=== PATIENT | female | born 1960 | race Caucasian/White ===

== ENCOUNTER 2016-09-06 17:31 | Inpatient (IN) ==
--- NOTE | 2016-09-06 18:48 | Emergency Department Note ---
Disposition Clinical Impression: Anemia Qualifiers: Anemia type: unspecified type Qualified Code(s): D64.9 - Anemia, unspecified Disposition: Admitted As Inpatient Condition: Good Recheck wound or abnormal lab - General Chief Complaint: ED Recheck/Abnormal Lab/Rx Stated Complaint: Abnormal Labs low Hemoglobin Time Seen by Provider: 09/06/16 18:07 Source: patient Limitations: no limitations Nursing Notes Reviewed: Yes Vital Signs Reviewed: Yes - History of Present Illness HPI Narrative: 66-year-old was doing preop for carotid endarterectomy was found have a hemoglobin 5.8. Pt Subjective Complaint: abnormal lab(s) Symptoms Since Prior Visit: no new symptoms Context: called for abnormal lab result Associated symptoms: none - Related Data Home Medications Medication Instructions Recorded Confirmed Aspirin Enteric Coated [Aspirin EC] 81 mg PO DAILY 09/06/16 09/06/16 Carvedilol 12.5 mg PO BID 09/06/16 09/06/16 hydroCHLOROthiazide 25 mg PO DAILY 09/06/16 09/06/16 [Hydrochlorothiazide] Allergies Allergy/AdvReac Type Severity Reaction Status Date / Time Penicillins [PCN] Allergy Rash Verified 09/05/16 09:16 lisinopril AdvReac Cough Verified 09/05/16 09:16 meperidine [From Demerol] AdvReac Vomiting Verified 09/05/16 09:16 All systems ED: reviewed and negative except as stated. Constitutional: Denies: fever, chills, weakness, weight change Eyes: Denies: eye pain, eye discharge, vision change ENT ED: Denies: ear pain, throat pain, dental pain, hearing loss, epistaxis, congestion, dysphagia Cardiovascular: Denies: chest pain, palpitations, dyspnea on exertion, edema, syncope Respiratory: Denies: cough, dyspnea, wheezes, hemoptysis, stridor Gastrointestinal: Denies: abdominal pain, nausea, vomiting, diarrhea, constipation, hematemesis, melena, hematochezia Genitourinary: Denies: dysuria, frequency, hematuria, discharge Musculoskeletal: Denies: back pain, neck pain, arthralgia, myalgia Integumentary: Denies: rash, abrasion, lesions Neurological: Reports: weakness (Generalized). Denies: headache, numbness, paresthesias, confusion, abnormal gait, vertigo Psychiatric: Denies: anxiety, depression, suicidal thoughts, homicidal thoughts , auditory hallucinations, visual hallucinations Endocrine: Denies: fatigue Hematological/Lymphatic: Denies: easy bleeding, easy bruising Allergic/Immunologic: Denies: facial swelling, urticaria Past Medical History - Past Medical History Medical history: Reports: hypertension Psychiatric history: Reports: no psych history - Social History Smoking Status: Current every day smoker Smokeless Tobacco Status: No Alcohol use: Reports: occasionally Drug use: Reports: none Physical Exam - General Limitations: no limitations General appearance: alert, anxious - Head Head exam: atraumatic, normocephalic, normal inspection - Eye Eye exam: Present: normal appearance, PERRL, EOMI - ENT ENT exam: normal exam, normal oropharynx, mucous membranes moist - Neck Neck exam: Present: normal inspection, full ROM, trachea midline - Chest Chest inspection: Present: normal inspection, symmetric chest wall rise - Respiratory Respiratory exam: Present: normal lung sounds bilaterally - Abdominal Exam Abdominal exam: Present: soft, Non-Tender. Absent: tenderness, distention, guarding, rebound, rigidity - Rectal Exam Web Site Admin present during exam: Yes Rectal exam: Present: black stool - Extremities Exam Extremities exam: Present: normal inspection, full ROM. Absent: tenderness, pedal edema - Expanded Lower Extremity Exam Neurovascular/Tendon exam: Absent: motor deficit, sensory deficit, tendon deficit Gait: observed and normal - Back Exam Back exam: Present: normal inspection, full ROM. Absent: tenderness - Neurological Exam Neurological exam: Present: alert, oriented X3 - Psychiatric Psychiatric exam: Present: normal affect, normal mood Course Vital Signs Temperature 98.3 F 09/06/16 17:34 Pulse Rate 99 09/06/16 17:34 Respiratory Rate 18 09/06/16 17:34 Blood Pressure 182/71 09/06/16 17:34 O2 Sat by Pulse Oximetry 100 09/06/16 17:34 Temperature 97.4 F L 09/06/16 20:16 Pulse Rate 90 09/06/16 20:16 Respiratory Rate 15 09/06/16 20:16 Blood Pressure 171/77 09/06/16 20:16 O2 Sat by Pulse Oximetry 96 09/06/16 20:16 Oxygen Delivery Oxygen Delivery Room Air Recheck wound or abnormal lab - Lab Data Lab Results 09/06/16 Range/Units 19:02 Blood Type A NEGATIVE Antibody Screen NEGATIVE Crossmatch See Detail
[2016-09-06] MEDS ORDERED: Naloxone 0.4 MG/ML INJ IVP PRN (21:50)
[2016-09-06] MEDS ORDERED: Ondansetron 4 MG/2 ML VIAL IVP PRN (21:50)
[2016-09-06] MEDS ORDERED: Acetaminophen 325 MG TABLET PO PRN (21:50)
--- NOTE | 2016-09-06 22:07 | Internal Med History&Physical ---
Date of Encounter: 09/06/16 Time of Encounter: 20:45 Assessment and Plan (1) Anemia Current visit: Yes Status: Acute 1. Will repeat CBC and confirm anemia. 2. Will order iron studies prior to transfusing PRBC's. 3. PRBC transfusion as orderd in ER. 4. Pt will likely need EGD/Colonoscopy prior to CEA. 5. Will check CXR and ECHO given finding of murmur on exam and smoking history. Suspect murmur is due to flow/turbulence from anemia. Long time smoking history concerning for underlying occult malignancy. No report, however , of unintentional weight loss or significant constitutional complaints. 6. Check stool hemmocult. Qualifiers: Anemia type: unspecified type Qualified Code(s): D64.9 - Anemia, unspecified (2) Carotid stenosis, left Current visit: Yes Status: Chronic 1. Surgery tentatively scheduled for Friday next week. 2. I Will ask daytime hospitalist to discuss with vascular surgeon as to whether surgery needs postponed or not. Pt will need GI work-up prior to surgery, in my opinion. (3) Hypertension Current visit: Yes Status: Chronic 1. Resume home meds as appropriate. 2. Monitor BP and adjust as needed. Qualifiers: Hypertension type: essential hypertension Qualified Code(s): I10 - Essential (primary) hypertension (4) DVT prophylaxis Current visit: Yes Status: Acute 1. EPCD's. Internal Medicine - H&P: HPI Chief complaint: abnormal labs Admitted From: Emergency Dept Plans for Post Hospital Care: Home History of present illness: Ms. Oleary is a 56 year old female who was sent to the ER by preadmission testing for abnormal labs. She was found to have profound anemia on basic routine lab testing. She came the ER and was admitted to the hospitalist service. Upon my assessment of the patient, she is currently resting in bed and having no complaints. I reviewed her labs and her stress test from [facility]. She denies any chest pain, shortness of breath, syncope, or near-syncope. She has had no lightheadedness or dizziness spells. She has some weakness and fatigue but otherwise feels normal. She denies any GI blood loss or vaginal bleeding. She reached menopause 4 years ago and has had no vaginal bleeding since then. She does have a history of anemia several years ago and was treated with 3 months of oral iron therapy with resolution of her anemia. She had a colonoscopy 5 years ago and had 2 benign polyps removed. She denies any unintentional weight loss, unexplained fevers, or profound weakness. She has a voracious appetite, and her weight has been unchanged. She is a smoker, but she denies any hemoptysis, shortness of breath, or worsening cough. Of note, she is due to have surgery on her left carotid artery next week for carotid artery stenosis. She recently started daily aspirin under the advice of her vascular surgeon. She denies any chronic NSAID use or abuse. She denies any alcohol abuse, but she does drink an occasional beer once twice per week. Past Med Surg Social Fam HX - Past Medical History Attestation: Yes The following information was validated with the patient. Source: patient, obtained from family Medical history: hypertension Psychiatric history: no psych history - Past Surgical History Surgical History: no surgical history - Social History Smoking Status: Current every day smoker Smokeless Tobacco Status: No Alcohol use: occasionally Drug use: none Occupational status: employed Current living situation: Home, With Family Activity Level: Independent ambulation Recent Out of Country Travel Within the Last 8 Weeks: No - Family History Mother Living Status: Still Living Hx Family Cardiac Disorders: No Hx Family Medical Disorders: No (no anemia or GI bleeding issues) Internal Medicine - H&P: Meds Aspirin Enteric Coated [Aspirin EC] 81 mg PO DAILY 09/06/16 [History] Carvedilol 12.5 mg PO BID 09/06/16 [History] hydroCHLOROthiazide [Hydrochlorothiazide] 25 mg PO DAILY 09/06/16 [History] Allergies Penicillins [PCN] Allergy (Verified 09/05/16 09:16) Rash lisinopril Adverse Reaction (Verified 09/05/16 09:16) Cough meperidine [From Demerol] Adverse Reaction (Verified 09/05/16 09:16) Vomiting - Constitutional Constitutional: fatigue (mi), no chills, no excessive sweating, no fever(s), no lethargy, no night sweats, no weight loss - EENT Eyes: no blurry vision, no change in vision Ears: no ear pain, no tinnitus Nose, mouth and throat: no sinus pain, no sore throat - Cardiovascular Cardiovascular ROS IM: no chest pain, no dyspnea, no dyspnea on exertion, no lightheadedness, no palpitations, no syncope - Respiratory Respiratory: cough (chronic "smoker's" cough), no dyspnea, no hemoptysis, no dyspnea on exertion, no wheezing, no pain on inspiration - Gastrointestinal Gastrointestinal: no abdominal pain, no belching, no diarrhea, no dyspepsia, no early satiety, no heartburn, no hematemesis, no hematochezia, no melena, no vomiting - Genitourinary Genitourinary: no abnormal vaginal bleeding, no dysuria, no flank pain, no hematuria - Musculoskeletal Musculoskeletal ROS IM: no arthralgias, no back pain, no muscle cramps, no muscle weakness - Integumentary Integumentary IM: no rash, no jaundice - Neurological Neurological ROS: no dizziness, no focal weakness, no frequent falls, no headache(s) - Psychiatric Psychiatric: no anxiety, no depression - Endocrine Endocrine IM: no cold intolerance, no heat intolerance, no polydipsia, no polyuria - Hematologic/Lymphatic Hematologic/Lymphatic: no easy bruising, no lymphadenopathy - Allergic/Immunologic Allergic/Immunologic: no wheezing, no GI upset with certain foods - Constitutional Vitals: Temp Pulse Resp BP Pulse Ox 97.4 F L 90 15 171/77 96 09/06/16 20:16 09/06/16 20:16 09/06/16 20:16 09/06/16 20:16 09/06/16 20:16 General appearance: Present: cooperative, A&O X 3, pleasant, no acute distress, answers questions appropriately - Head Head exam: Present: atraumatic, normal inspection - Expanded Head Exam Head exam expanded: Absent: general tenderness - Eye Eye exam: Present: EOMI, normal appearance, PERRL. Absent: scleral icterus Pupils: Present: normal accommodation - ENT ENT exam: Present: mucous membranes moist, normal exam, normal oropharynx - Neck Neck exam general surgery: Present: full ROM, normal inspection, supple. Absent : tenderness, thyromegaly - Expanded Neck Exam Neck exam: Present: carotid bruit - Respiratory Respiratory exam: Present: CTAB. Absent: chest wall tenderness, rales, respiratory distress, rhonchi, wheezes - Cardiovascular Cardiovascular exam: Present: RRR, +S1, +S2, systolic murmur (grade 2). Absent : diastolic murmur - GI/Abdominal GI/Abdominal exam: Present: normal bowel sounds, soft. Absent: guarding, hepatomegaly, mass, rebound, splenomegaly, tenderness - Extremities Exam Extremities exam: Present: full ROM, warm, radial pulses palpable and symetrical. Absent: calf tenderness, pedal edema, tenderness Additional comments: pale nail beds - Back Exam Back exam: Present: normal inspection. Absent: CVA tenderness (L), CVA tenderness (R) - Neurological Exam Neurological exam: Present: alert, CN II-XII intact, oriented X3, no focal deficits, strengths equal and symetr throughout - Psychiatric Psychiatric exam: Present: normal affect, normal mood - Skin Skin exam: Present: dry, pallor (mild), warm. Absent: rash Internal Med - H&P Results - Labs Labs: Labs reviewed from PAT. Pertinent labs detailed below: WBC 5.0 Hgb 5.8 Hct 22.2 MCV 64.2 platelet count 293 PT 120.4 INR 1.1 PTT 25.8 Chemistries WNL
[2016-09-06 22:26] LABS: Eosinophils % 2.6 %; Immature Granulocytes % 0.5 % (0-4)
[2016-09-06 22:28] LABS: Basophils % 0.3 %; Eosinophils # 0.2 K/mcL (0.0-0.6); Hematocrit 21.1 % (35.3-44.9); Lymphocytes # 1.5 K/mcL (0.6-4.6); Lymphocytes % 25.8 %; Mean Corpuscular HGB Conc 26.5 g/dL (31.6-35.5); Mean Corpuscular Hemoglobin 16.9 pg (28.0-33.3); Mean Corpuscular Volume 63.6 fL (83.0-100.0); Mean Platelet Volume 9.6 fL (9.4-12.4); Monocytes # 0.7 K/mcL (0.0-1.3); Monocytes % 11.4 %; Platelet Count 290 K/mcL (140-400); Red Blood Count 3.32 M/mcL (3.82-4.97); Red Cell Distribution Width 18.2 % (11.5-14.5); Retculocyte # 0.07 M/mcL (0.05-0.10); Segmented Neutrophils % 59.4 %
[2016-09-06 22:29] LABS: Neutrophils # 3.5 K/mcL (1.6-8.9)
[2016-09-06 22:31] LABS: Hemoglobin 5.6 g/dL (11.5-15.4)
[2016-09-06 22:39] LABS: % Iron Saturation 2 % (15-50); Iron 11 mcg/dL (50-170); Transferrin 446 mg/dL (180-382)
[2016-09-06 22:48] LABS: Hypochromasia Present (Not Present); Microcytosis Present (Not Present)
[2016-09-06 22:49] LABS: Polychromasia 1+ (Not Present)
[2016-09-06] MEDS ORDERED: 0.9 % Sodium Chloride 250 ML ONE (22:52)
[2016-09-06] MEDS: Nicotine 21 MG PATCH.TD24 TD SCH (23:06)
[2016-09-07] MEDS ORDERED: 0.9 % Sodium Chloride 250 ML ONE (01:47)
[2016-09-07 04:25] LABS: Basophils # 0.1 K/mcL (0.0-0.2); Basophils % 0.9 %; Eosinophils # 0.2 K/mcL (0.0-0.6); Eosinophils % 3.4 %; Hematocrit 29.1 % (35.3-44.9); Immature Granulocytes % 0.5 % (0-4); Lymphocytes # 1.4 K/mcL (0.6-4.6); Mean Corpuscular HGB Conc 29.9 g/dL (31.6-35.5); Mean Corpuscular Hemoglobin 20.6 pg (28.0-33.3); Mean Platelet Volume 9.5 fL (9.4-12.4); Monocytes # 0.8 K/mcL (0.0-1.3); Monocytes % 13.9 %; Neutrophils # 3.1 K/mcL (1.6-8.9); Platelet Count 250 K/mcL (140-400); Red Blood Count 4.22 M/mcL (3.82-4.97); Red Cell Distribution Width 22.4 % (11.5-14.5); Segmented Neutrophils % 56.3 %
[2016-09-07 04:39] LABS: BUN/Creatinine Ratio 13 (6-26); Blood Urea Nitrogen 9 mg/dL (7-20); Calcium 8.9 mg/dL (8.6-10.8); Carbon Dioxide 25 mEq/L (19-29); Chloride 106 mEq/L (98-109); Glucose 125 mg/dL (70-99); Magnesium 1.9 mg/dL (1.6-2.6); Osmolality,Calculated 290 (280-300); Potassium 3.1 mEq/L (3.5-4.5); Sodium 140 mEq/L (136-145); eGFR For African Americans > 60 (> 60); eGFR For Non-African Americans > 60 (> 60)
[2016-09-07 04:58] LABS: Hemoglobin 8.7 g/dL (11.5-15.4)
[2016-09-07 04:59] LABS: Anisocytosis 2+ (Not Present); Microcytosis Present (Not Present); Poikilocytosis 2+ (Not Present)
[2016-09-07 05:00] LABS: Platelet Estimate Normal (Normal)
[2016-09-07] MEDS: Aspirin Enteric Coated 81 MG Tablet PO SCH (09:34)
[2016-09-07] MEDS: hydroCHLOROthiazide 25 MG TABLET PO SCH (09:34)
[2016-09-07] MEDS: Nicotine 21 MG PATCH.TD24 TD SCH (09:35)
--- NOTE | 2016-09-07 12:41 | Internal Med Progress Note ---
Date of Encounter: 09/07/16 Time of Encounter: 09:20 - Assessment and plan (1) Anemia Current Visit: Yes Status: Acute Assessment and plan: He should admitted with a hemoglobin of 5.6. She was transfused with 2 units of packed red blood cells and now to 8.7. Iron studies were completed prior to transfusion. Iron level is 11, percent saturation is 2. Patient has prior history of iron deficiency anemia which was corrected with supplementation which was subsequently stopped. She denies any vaginal bleeding, to miss hematochezia or dark tarry stools. I have consulted with Dr. Alonso for an EGD. She was made nothing by mouth immediately, although she did eat part of her lunch. Start iron supplementation prior to discharge [place] colonoscopy outpatient. Qualifiers: Anemia type: iron deficiency Qualified Code(s): D50.9 - Iron deficiency anemia, unspecified (2) Carotid stenosis, left Current Visit: Yes Status: Chronic Assessment and plan: Patient is scheduled to have a carotid endarterectomy on Friday. I spoke with Dr. Oviedo by phone. He said that Dr. Cox can make the determination about the carotid surgery on Friday. (3) DVT prophylaxis Current Visit: Yes Status: Acute Assessment and plan: Patient up ad ruben. EZRA hose. No pharmacologic intervention due to anemia. (4) Hypertension Current Visit: Yes Status: Chronic Assessment and plan: Chronic. Continue medications. Qualifiers: Hypertension type: essential hypertension Qualified Code(s): I10 - Essential (primary) hypertension - Time Spent With Patient less than 15 minutes - Subjective Interval history: Patient was admitted through the emergency room last night for anemia. Hemoglobin was 5.6. After 2 units of packed red cells, hemoglobin is 8.7 this morning. She denies vaginal bleeding, dark tarry stools, bright red rectal bleeding, hematuria, hemoptysis. She has been asymptomatic other than fatigue. She said she felt that that was normal. She says she did not ever appear to be pale, says that she looks the same pre-and post transfusion. She says in the past she has been on iron supplements for ADIEL. Iron is 11, percent saturation is 2. Transferrin is 446. I spoke with Dr. Alonso who was going to scope patient today, however she did eat breakfast and part of her lunch. He will begin the prep tomorrow and scope patient on Friday morning. I spoke with Dr. Maradiaga by phone who said that Dr. Blue may make the determination on Friday regarding her carotid endarterectomy she is to have on Friday. Patient is aware of plan of care. - Constitutional Vitals: Temp Pulse Resp BP Pulse Ox 98.6 F 75 16 139/74 98 09/07/16 11:02 09/07/16 11:02 09/07/16 11:02 09/07/16 11:02 09/07/16 11:02 General appearance: Present: cooperative, A&O X 3, pleasant, no acute distress, answers questions appropriately - Head Head exam: Present: normal inspection - Eye Eye exam: Present: normal appearance, conjuntiva pink - ENT ENT exam: Present: mucous membranes moist, normal exam, normal external ear exam - Neck Neck exam general surgery: Present: normal inspection. Absent: lymphadenopathy , tenderness - Respiratory Respiratory exam: Present: CTAB. Absent: rales, respiratory distress, rhonchi, wheezes - Cardiovascular Cardiovascular exam: Present: RRR, +S1, +S2. Absent: bradycardia, clicks, gallop, tachycardia - GI/Abdominal GI/Abdominal exam: Present: normal bowel sounds, soft. Absent: distended, firm , hepatomegaly, tenderness - Extremities Exam Extremities exam: Present: normal capillary refill, normal inspection, warm, radial pulses palpable and symetrical. Absent: pedal edema, tenderness - Neurological Exam Neurological exam: Present: alert, oriented X3, no focal deficits, strengths equal and symetr throughout. Absent: facial droop, speech deficit - Skin Skin exam: Present: intact, normal color, warm. Absent: rash Internal Medicine: Result - Labs CBC & Chem 7: 09/07/16 04:03 09/07/16 04:03 Labs: Short CBC 09/06/16 09/07/16 Range/Units 22:12 04:03 WBC 5.8 5.5 (4.3-11.1) K/mcL Hgb 5.6 L* 8.7 L D (11.5-15.4) g/dL Hct 21.1 L 29.1 L (35.3-44.9) % Plt Count 290 250 (140-400) K/mcL Neutrophils # 3.5 3.1 (1.6-8.9) K/mcL BMP 09/07/16 04:03 Sodium 140 Potassium 3.1 L Chloride 106 Carbon Dioxide 25 BUN 9 Creatinine 0.67 Glucose 125 H Calcium 8.9 - Impressions Impressions Chest X-Ray 09/06/16 21:50 IMPRESSION: No acute process. D/ / Tiffany Peña MD / Tiffany Peña MD Interpreting Provider: Tiffany Peña MD Consult Discharge Plan - Plan Referrals: Miguel Angel Rojas MD [Primary Care Provider] -
--- NOTE | 2016-09-07 13:09 | ECHO - Doppler Report ---
Echocardiogram Name: Bibi Oleary Date of Study: 09/07/2016 Date: 1960 Ht: 61.0 in Medical Record#: [id number] Age: 56 Wt: 94.0 lb Gender: Female BSA: 1.37 Order #: [id number] Location: [facility] Room #: [id number] Reading Physician: Toni Chawla DO, FACC, CYDNEY Tape Stringer: LAVERNE BrownT, RD Ordering Physician: Phil Reynaga MD Primary Physician: None Indications: Murmur Impressions: LVEF 65%. Normal LV chamber size, wall thickness and function. Normal left ventricular diastolic function. Normal right ventricular structure and function. No evidence of pulmonary hypertension. Mild aortic sclerosis. Mean gradient 10 mmHg. Left Ventricular Wall Motion: Rest Echo Findings All wall segments showed normal motion. Findings: Study Quality * Technically adequate exam. ECG Findings * Normal sinus rhythm. Left Ventricle * LVEF 65%. * Normal LV chamber size, wall thickness and function. * Normal left ventricular diastolic function. Right Ventricle * Normal right ventricular structure and function. Left Atrium * Normal left atrial size. Right Atrium * Normal right atrial size. Interatrial Septum * No evidence of PFO by color Doppler. Aortic Valve * Aortic valve not well visualized. * Grossly, the aortic valve appears mildly sclerotic. * No aortic regurgitation. * Mild aortic sclerosis. Mean gradient 10 mmHg. Mitral Valve * Normal mitral valve structure and function. * No mitral stenosis. * Trace mitral regurgitation. Tricuspid Valve * Normal tricuspid valve structure and function. * Trace tricuspid regurgitation. * No evidence of pulmonary hypertension. Pulmonic Valve * Normal pulmonic valve structure and function. * No pulmonic regurgitation. Aorta * Normally sized aortic root. Pericardium * The pericardium appears normal. IVC * Normal IVC dimensions and inspiratory collapse. Pulmonary Artery * Normal visualized portions of the main pulmonary artery. History Hypertension Measurements: BP: 143/ 74 2D Normal Values RVIDd: 2.40 cm <2.7 cm IVSd: 1.00 cm 0.6 - 1.0 cm LVIDd: 3.50 cm 3.7 - 5.6 cm LVPWd: .90 cm 0.6 - 1.1 cm LVIDs: 2.50 cm 1.5 - 3.6 cm AO: 2.50 cm < 4.0 cm LA: 3.10 cm 2.0 - 4.0cm %FS: 28.60 cm >25 % LVOT Diam: 1.80 cm LA volume: 27 Mitral Valve Dec Time:215.00 msec Peak E:1.27 m/sec Peak A:.91 m/sec E/A Ratio:1.4 Peak E' Lat Rasheed:12.8 cm/s Peak E' Med Rasheed:11.8 cm/s E/E' Lat Ratio:9.9 E/E' Med Ratio:10.8 LVOT Peak Rasheed:.91 m/sec Mean Rasheed:.66 m/sec Peak Grad:3.00 mmHg Mean Grad:2.00 mmHg Aortic Valve Peak Rasheed:2.16 m/sec Mean Rasheed:1.41 m/sec Peak Grad:19.00 mmHg Mean Grad:10.00 mmHg Valve Area:1.15 cm2 Tricuspid Valve TV Regurg Peak Grad: 23.00mmHg TV Regurg Peak Rasheed: 2.42m/sec Updated by Toni Chawla DO, FACAjit, GIUSEPPE LAMAS on 09/07/2016 1:00:41 PM electronically signed on 09/07/2016 1:04:13 PM with status of Final Wall Motion Phillips: 1=Normal, 2=Hypokinesis, 3=Akinesis, 4=Dyskinesis, 5=Aneurysmal, 6=Hyperkinetic, X=Not Visualized (Blank)=Missing
--- NOTE | 2016-09-07 14:24 | Gastroenterology Consult Note ---
Date of Encounter: 09/07/16 Time of Encounter: 13:00 - Assessment and plan (1) Microcytic anemia Current Visit: Yes Status: Acute Assessment and plan: Patient with severe microcytic anemia. No overt GI bleeding. We will give her IV iron. She will be prepped for an EGD and colonoscopy. - Time Spent With Patient Total time spent is greater than 50% in coordination of care (as documented) at patient's floor/unit and/or counseling patient: GI History of Present Illness - Data of Consult Consult date: 09/07/16 Requesting Physician: Rolan Darnell - Consult Narrative Reason for consult: Anemia History of present illness: Ms. Oleary is a 56 year old female see because of her anemia. Patient is supposed to have a carotid endarterectomy done on Friday on routine preoperative testing she was found to be anemic so got admitted. Per patient she has been feeling some fatigue lately but no other symptoms. No bleeding per rectum no black stool. Denies any abdominal pain this takes some Motrin on an as needed basis. Had a colonoscopy done more than 5 years ago and per patient 2 polyps were removed. No family history of colon cancer Past Med Surg Social Fam HX - Past Medical History Medical history: hypertension Psychiatric history: no psych history - Past Surgical History Surgical History: no surgical history - Social History Smoking Status: Current every day smoker Smokeless Tobacco Status: No Alcohol use: occasionally Drug use: none - Family History Mother Living Status: Still Living Hx Family Cardiac Disorders: No Hx Family Medical Disorders: No (no anemia or GI bleeding issues) Review of Systems: GI: as per [place] GENERAL: denies fever, has some chills EYES: denies yellow discoloration ENT: denies pain with swallowing or difficulty swallowing CARDIO: denies chest pain, palpitations RESP: denies shortness of breath or wheezing : denies change in color of urine NEURO: denies any weakness HEME: Denies any bruising MS: denies joint pain, joint swelling or back pain. DERM: denies rash or itching PSYCH: denies history of: depression or anxiety - Constitutional Vitals: Temp Pulse Resp BP Pulse Ox 98.6 F 75 16 139/74 98 09/07/16 11:02 09/07/16 11:02 09/07/16 11:02 09/07/16 11:02 09/07/16 11:02 - Head Head exam: Present: atraumatic - Eye Eye exam: Present: sclera anicteric - Respiratory Additional comments: Bilateral good air entry , no crackles or wheezing - Cardiovascular Cardiovascular exam: Present: +S1, +S2 - GI/Abdominal Additional comments: Soft no organomegaly no focal tenderness - Extremities Exam Extremities exam: Present: full ROM, warm Additional comments: No clubbing cyanosis or edema - Skin Skin exam: Present: dry, warm Results - Labs CBC & Chem 7: 09/07/16 04:03 09/07/16 04:03 Labs: Last Result Calcium 8.9 mg/dL (8.6-10.8) 09/07/16 04:03 Iron 11 mcg/dL (50-170) L 09/06/16 22:12 % Saturation 2 % (15-50) L 09/06/16 22:12 Transferrin 446 mg/dL (180-382) H 09/06/16 22:12 Entire Visit Hgb 8.7 g/dL (11.5-15.4) L D 09/07/16 04:03 Hct 29.1 % (35.3-44.9) L 09/07/16 04:03 Consult Discharge Plan - Plan Referrals: Miguel Angel Rojas MD [Primary Care Provider] -
[2016-09-07] MEDS ORDERED: Iron Sucrose Complex 400 MG in 0.9 % Sodium Chloride 250 ML IVPB ONE (14:25)
[2016-09-08 04:42] LABS: Basophils # 0.1 K/mcL (0.0-0.2); Basophils % 0.8 %; Eosinophils # 0.2 K/mcL (0.0-0.6); Eosinophils % 1.9 %; Hematocrit 31.5 % (35.3-44.9); Hemoglobin 9.3 g/dL (11.5-15.4); Lymphocytes # 1.4 K/mcL (0.6-4.6); Lymphocytes % 17.1 %; Mean Corpuscular HGB Conc 29.5 g/dL (31.6-35.5); Mean Corpuscular Hemoglobin 20.6 pg (28.0-33.3); Mean Corpuscular Volume 69.8 fL (83.0-100.0); Mean Platelet Volume 9.7 fL (9.4-12.4); Monocytes # 0.9 K/mcL (0.0-1.3); Monocytes % 11.2 %; Neutrophils # 5.4 K/mcL (1.6-8.9); Nucleated Red Blood Cells 0.3 /100 WBC (0); Platelet Count 265 K/mcL (140-400); Red Blood Count 4.51 M/mcL (3.82-4.97); Red Cell Distribution Width 22.3 % (11.5-14.5)
[2016-09-08 04:55] LABS: BUN/Creatinine Ratio 17 (6-26); Blood Urea Nitrogen 11 mg/dL (7-20); Calcium 8.9 mg/dL (8.6-10.8); Carbon Dioxide 25 mEq/L (19-29); Chloride 106 mEq/L (98-109); Glucose 99 mg/dL (70-99); Osmolality,Calculated 289 (280-300); Potassium 3.5 mEq/L (3.5-4.5); Sodium 140 mEq/L (136-145); eGFR For African Americans > 60 (> 60); eGFR For Non-African Americans > 60 (> 60)
[2016-09-08 05:06] LABS: Anisocytosis 1+ (Not Present); Microcytosis Present (Not Present); Platelet Estimate Normal (Normal); Poikilocytosis 1+ (Not Present); Polychromasia 1+ (Not Present)
[2016-09-08] MEDS: Nicotine 21 MG PATCH.TD24 TD SCH (10:19)
[2016-09-08] MEDS: hydroCHLOROthiazide 25 MG TABLET PO SCH (10:19)
[2016-09-08] MEDS: Aspirin Enteric Coated 81 MG Tablet PO SCH (10:19)
[2016-09-08] MEDS ORDERED: SODIUM CHLORIDE/NAHCO3/KCL/PEG 4,000 ML SOLN.RECON PO ONE (17:00)
--- NOTE | 2016-09-09 07:43 | Internal Med Progress Note ---
Date of Encounter: 09/08/16 Time of Encounter: 07:43 - Assessment and plan (1) Anemia Current Visit: Yes Status: Acute Assessment and plan: admitted with a hemoglobin of 5.6. She was transfused with 2 units of packed red blood cells and now to 8.9. Iron studies were completed prior to transfusion. Iron level is 11, percent saturation is 2, started on iron. planned for EGD and colonoscopy tomm \ Qualifiers: Anemia type: iron deficiency Qualified Code(s): D50.9 - Iron deficiency anemia, unspecified (2) Carotid stenosis, left Current Visit: Yes Status: Chronic Assessment and plan: Patient is scheduled to have a carotid endarterectomy on Friday. planned for carotid endarterectomy tomm (3) Hypertension Current Visit: Yes Status: Chronic Assessment and plan: Chronic. Continue medications. Qualifiers: Hypertension type: essential hypertension Qualified Code(s): I10 - Essential (primary) hypertension (4) Tobacco abuse Current Visit: Yes Status: Acute - Subjective Interval history: late entry for 09/08/16 patinet seen at the [facility] [place], denies any complains planned for EGD/colonoscopy tomm with DR. Alonso admitted for anemia. - Constitutional Vitals: Temp Pulse Resp BP Pulse Ox 98.2 F 73 14 149/75 97 09/09/16 03:45 09/09/16 03:45 09/09/16 03:45 09/09/16 03:45 09/09/16 03:45 General appearance: Present: cooperative, A&O X 3, pleasant, no acute distress, answers questions appropriately Exam: - Head Head exam: Present: atraumatic - Eye Eye exam: Present: sclera anicteric - Respiratory Additional comments: Bilateral good air entry , no crackles or wheezing - Cardiovascular Cardiovascular exam: Present: +S1, +S2 - GI/Abdominal Additional comments: Soft no organomegaly no focal tenderness - Extremities Exam Extremities exam: Present: full ROM, warm Additional comments: No clubbing cyanosis or edema - Skin Skin exam: Present: dry, warm Internal Medicine: Result - Labs CBC & Chem 7: 09/09/16 11:59 09/08/16 04:14 - VTE Documentation of Mechanical Device: Graduated compression elastic hosiery Consult Discharge Plan - Plan Referrals: Miguel Angel Rojas MD [Primary Care Provider] - 09/17/16 10:00 am (Please follow up as schedule...)
[2016-09-09] MEDS: Aspirin Enteric Coated 81 MG Tablet PO SCH (08:12)
[2016-09-09] MEDS: hydroCHLOROthiazide 25 MG TABLET PO SCH (08:12)
[2016-09-09] MEDS: Nicotine 21 MG PATCH.TD24 TD SCH (08:12)
[2016-09-09] MEDS ORDERED: *HR* Midazolam HCl 5 MG/5 ML VIAL IVP ONE (09:29)
[2016-09-09] MEDS ORDERED: *HR* FentaNYL (PF) 100 MCG/2 ML VIAL ONE (09:30)
[2016-09-09] MEDS ORDERED: Simethicone 40 MG/0.6 ML MLS IR ONE (09:41)
[2016-09-09] MEDS ORDERED: Tetracaine/Benzocaine/Butamben 200MG/SPRAY (100SPY/BOT) MM ONE (09:41)
--- NOTE | 2016-09-09 09:42 | Pre-Sedation Evaluation ---
Pre-sedation evaluation - Pre-sedation checklist Date of procedure: 09/09/16 Procedure: EGD/ Colonscopy Recent Vitals: Last Vital Signs Temp 98.4 F 09/09/16 07:44 Pulse 75 09/09/16 07:44 Resp 18 09/09/16 07:44 BP 130/80 09/09/16 07:44 Pulse Ox 98 09/09/16 07:44 H&P (including ROS) documented in medical record: Yes Previous reaction to sedatives/anesthetics: No Dietary Status: NPO after Midnight Dentition: No loose teeth or bridges ASA Classification *see protocol: CLASS III-Severe systemic disease Plan of Care: Pt appropriate candidate for procedure/moderate/conscious sedation , Risks/benefits of procedure/sedation discussed w/ patient/family
[2016-09-09] MEDS: *HR* FentaNYL (PF) 100 MCG/2 ML VIAL IVP PRN ×2 (09:50→10:02)
[2016-09-09] MEDS: *HR* Midazolam HCl 5 MG/5 ML VIAL IVP PRN ×2 (09:50→10:02)
[2016-09-09 12:18] LABS: Hemoglobin 8.9 g/dL (11.5-15.4); Immature Granulocytes % 0.9 % (0-4)
[2016-09-09 12:19] LABS: Basophils # 0.1 K/mcL (0.0-0.2); Basophils % 0.9 %; Eosinophils # 0.2 K/mcL (0.0-0.6); Eosinophils % 2.8 %; Hematocrit 31.5 % (35.3-44.9); Lymphocytes # 0.9 K/mcL (0.6-4.6); Lymphocytes % 17.2 %; Mean Corpuscular HGB Conc 28.3 g/dL (31.6-35.5); Mean Corpuscular Volume 70.8 fL (83.0-100.0); Mean Platelet Volume 8.9 fL (9.4-12.4); Monocytes # 0.6 K/mcL (0.0-1.3); Monocytes % 11.1 %; Neutrophils # 3.6 K/mcL (1.6-8.9); Platelet Count 249 K/mcL (140-400); Red Blood Count 4.45 M/mcL (3.82-4.97); Segmented Neutrophils % 67.1 %
[2016-09-09 12:45] LABS: Anisocytosis 2+ (Not Present); Hypochromasia Present (Not Present); Platelet Estimate Normal (Normal)
--- NOTE | 2016-09-09 14:49 | Vascular/Endovasc Consult Note ---
Date of Encounter: 09/09/16 Time of Encounter: 14:00 Assessment and Plan (1) Carotid stenosis, bilateral Status: Chronic The patient has a 70-99% LICA stenosis. She denies recent symptoms of CVA, TIA or amaurosis fugax. Her peak systolic velocities are at the higher end of the range. The patient has recently been treated for anemia including transfusion and endoscopy. The patient was discussed with Dr. Alonso and he stated she is stable for surgery. Will proceed with surgery tomorrow. Slava risks, benefits and alternatives were discussed and all questions were answered. Her hemoglobin will be rechecked after the procedure. (2) Tobacco abuse Status: Acute She was counseled regarding smoking cessation. (3) Hypertension Status: Chronic She was counseled regarding atherosclerotic risk factor reduction. Qualifiers: Hypertension type: essential hypertension Qualified Code(s): I10 - Essential (primary) hypertension (4) Microcytic anemia Status: Acute - History of Present Illness Consult date: 09/09/16 Requesting physician: Juan Alonso Consult reason: carotid stenosis Chief complaint: Carotid Stenosis, anemia History of present illness: Ms. Oleary is a 56 year old female with a history of carotid stenosis. The patient underwent lab studies last week that revealed a hemoglobin of 5.6. The patient was admitted and received PRBCs. She remained hemodynamically stable. She also underwent endoscopy by Dr. Alonso. She remains hemodynamically stable. She denies any recent symptoms of CVA, TIA or amaurosis fugax. She denies headaches, dizziness of visual disturbances. She denies chest pain or shortness of breath. Past Med Surg Social Fam HX - Past Medical History Medical history: hypertension Psychiatric history: no psych history - Past Surgical History Surgical History: no surgical history - Social History Smoking Status: Current every day smoker Smokeless Tobacco Status: No Alcohol use: occasionally Drug use: none - Family History Mother Living Status: Still Living Hx Family Cardiac Disorders: No Hx Family Medical Disorders: No (no anemia or GI bleeding issues) Medications and Allergies Aspirin Enteric Coated [Aspirin EC] 81 mg PO DAILY 09/06/16 [History] Carvedilol 12.5 mg PO BID 09/06/16 [History] hydroCHLOROthiazide [Hydrochlorothiazide] 25 mg PO DAILY 09/06/16 [History] HYDROcodone/Acet 5/325 mg [[place] 5-325 mg] 1 tab PO Q4H PRN #30 tablet 09/11/16 [Rx] Omeprazole [PriLOSEC] 20 mg PO DAILY@0630 30 Days 09/11/16 [Rx] Allergies Penicillins [PCN] Allergy (Verified 09/05/16 09:16) Rash lisinopril Adverse Reaction (Verified 09/05/16 09:16) Cough meperidine [From Demerol] Adverse Reaction (Verified 09/05/16 09:16) Vomiting All Systems Review: A 10-system review of systems was performed and is negative for pertinent findings except as documented above in the HPI. Exam Vital Signs, Last 4 Hours Temp Pulse Resp BP Pulse Ox 09/09/16 11:18 97.4 F L 68 18 125/74 99 General: Present: Conversant, No Apparent Distress HEENT: Present: Atraumatic, Trachea midline, Pupils equal Neck: Present: Left Carotid bruit. Absent: JVD, Lymphadenopathy, Right Carotid bruit, Tracheal deviation Cardiac: Present: Reg Rate and Rhythm, Normal S1 and S2, No Murmur Lungs: Present: Normal Breath Sounds, No Wheeze, Rales, Rhonchi Neuro: Present: Alert and responsive, No focal deficits noted, Motor nerves grossly intact, Sensory nerves grossly intact Abdomen: Present: Soft, Non-tender. Absent: Hepatosplenomegaly, Masses Vascular: Present: Normal capillary refill, Pulse, normal. Absent: Cyanosis, Edema Skin: Present: No rashes noted on visualized skin Consult Discharge Plan - Plan Instructions: Peripheral Vascular Disorders (DC), Surgical Site Infections (GEN ), Anemia (GEN) Referrals: Luis Armando Cox MD [Partnered Physician] - 10/14/16 3:30 pm Miguel Angel Rojas MD [Primary Care Provider] - 09/17/16 10:00 am (Please follow up as schedule...) Prescriptions: HYDROcodone/Acet 5/325 mg [[place] 5-325 mg] 1 tab PO Q4H PRN #30 tablet PRN Reason: POSTOPERATIVE PAIN Omeprazole [PriLOSEC] 20 mg PO DAILY@0630 30 Days
--- NOTE | 2016-09-09 16:57 | Internal Med Progress Note ---
Date of Encounter: 09/10/16 Time of Encounter: 16:56 - Assessment and plan (1) Anemia Current Visit: Yes Status: Acute Assessment and plan: admitted with a hemoglobin of 5.6. She was transfused with 2 units of packed red blood cells and now to 8.9. Iron studies were completed prior to transfusion. Iron level is 11, percent saturation is 2, started on iron. GI was consulted. underwent EGD and colonoscopy . EGD shows a single recently bleeding angiectasia in the stomach that was treated with APC. colonoscopy shows multiple colonic angiectasias that was treated with APC. will monitor cbc, await path results and capsule endo as per GI as OP. \ Qualifiers: Anemia type: iron deficiency Qualified Code(s): D50.0 - Iron deficiency anemia secondary to blood loss (chronic) (2) Carotid stenosis, left Current Visit: Yes Status: Chronic Assessment and plan: Patient is scheduled to have a carotid endarterectomy on Friday. planned for carotid endarterectomy with DR. Cox. vascular is following (3) Hypertension Current Visit: Yes Status: Chronic Assessment and plan: Chronic. Continue medications. Qualifiers: Hypertension type: essential hypertension Qualified Code(s): I10 - Essential (primary) hypertension (4) Tobacco abuse Current Visit: Yes Status: Acute - Subjective Interval history: patinet seen at the [facility], denies any complains s/p EGD/colonoscopy today with DR. Alonso admitted for anemia. - Constitutional Vitals: Temp Pulse Resp BP Pulse Ox 98.1 F 77 18 162/62 96 09/09/16 16:34 09/09/16 16:34 09/09/16 16:34 09/09/16 16:34 09/09/16 16:34 General appearance: Present: cooperative, A&O X 3, pleasant, no acute distress, answers questions appropriately Exam: neck- supple chest- b/l clear, no added sounds CVs-s1 and s2, no m r//g abd- soft, non tender , bs are present ext- no edema neuro- no focal deficits, alert and awake Internal Medicine: Result - Labs CBC & Chem 7: 09/10/16 14:42 09/08/16 04:14 Labs: Short CBC 09/09/16 Range/Units 11:59 WBC 5.3 (4.3-11.1) K/mcL Hgb 8.9 L (11.5-15.4) g/dL Hct 31.5 L (35.3-44.9) % Plt Count 249 (140-400) K/mcL Neutrophils # 3.6 (1.6-8.9) K/mcL - VTE Documentation of Mechanical Device: Graduated compression elastic hosiery Consult Discharge Plan - Plan Referrals: Miguel Angel Rojas MD [Primary Care Provider] - 09/17/16 10:00 am (Please follow up as schedule...)
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
[2016-09-10] MEDS: hydroCHLOROthiazide 25 MG TABLET PO SCH (07:37)
[2016-09-10] MEDS: Aspirin Enteric Coated 81 MG Tablet PO SCH (07:37)
[2016-09-10] MEDS: Nicotine 21 MG PATCH.TD24 TD SCH (07:38)
[2016-09-10] MEDS ORDERED: Heparin 1,000 UNITS/500 mL NS 0 ML ONE (07:59)
[2016-09-10] MEDS ORDERED: Lidocaine 1% 20 ML MDV ONE (08:34)
[2016-09-10] MEDS ORDERED: Bupivacaine-MPF 0.25% 10 ML VIAL ONE (08:34)
[2016-09-10] MEDS ORDERED: Heparin 1,000 UNITS/500 mL NS 500 ML ONE ×2 (08:35→08:36)
[2016-09-10] MEDS ORDERED: Vancomycin 1,000 MG VIAL ONE (08:35)
[2016-09-10] MEDS ORDERED: NiCARdipine 2.5 MG/10 ML Syringe IVPB ONE (08:43)
--- NOTE | 2016-09-10 08:51 | Anesthesia Procedures ---
Date of Encounter: 09/10/16 Time of Encounter: 08:50 Procedures: Anesthesia - Arterial Line Consent obtained: verbal consent Time out performed: Yes Sedation: Versed (mg): 2 Sedation: Fentanyl (mcg): 0 Local Anesthetic: Lidocaine 1% (1) Size (Gauge): 20 Length (inches): 1 3/4 Technique Used: sterile prep, guide wire technique, direct puncture technique Post-Procedure: line taped into place, dry sterile dressing placed Patient tolerated procedure: well, no complications Complications: none Site: Radial L
--- NOTE | 2016-09-10 12:45 | Operative Note ---
Date of procedure: 09/10/16 Pre-op diagnosis: 70-99% Left internal carotid artery stenosis Post-op diagnosis: same Procedure: Left carotid endarterectomy with hemashield patch angioplasty. Complications: None Anesthesia: BETSYA Surgeon: Luis Armando Cox Estimated blood loss (cc): 100 Specimen: Left carotid plaque Condition: stable Disposition: PACU Procedure in Detail: Indications: The patient is a 56 year old female who was found to have an 70-99 % left internal carotid artery stenosis. A left carotid endarterectomy was recommended to reduce her risk of stroke. Procedure: The patient was identified in the preoperative area. The risks, benefits, and alternatives of the procedure were discussed and all questions were answered. The patient was then taken to the operating room and placed in supine position on the operating table. After induction of general endotracheal anesthesia, the patient was cleaned and draped in normal sterile fashion. A longitudinal incision was made anterior to the left sternocleidomastoid muscle. Hemostasis was obtained via electrocautery. Through a process of blunt , sharp, and electrocautery dissection, the platysma was traversed. The jugular vein was identified. The facial vein was clamped, divided, tied off with a 2-0 silk suture ligature. The jugular vein was retracted, exposing the carotid bifurcation. She then received 2000 units of heparin intravenously at this time. Proximal dissection of the common and external carotid arteries were performed circumferentially. Dissection of the internal carotid was performed circumferentially. Vessels loops were passed around the internal and external carotid and an umbilical tape was passed from the common carotid artery. The patient received additional 3000 units of heparin intravenously. Additional heparin was given throughout the case to maintain adequate anticoagulation. After waiting adequate time for the heparin to circulate, the vessels were occluded and a longitudinal arteriotomy was made into the common carotid artery extending into the internal carotid beyond the plaque. Vigorous pulsatile retrograde flow was noted from the internal carotid artery upon release of the loop; therefore, no shunt was placed. A dental Gila was used to perform a standard endarterectomy. Proximal and distal endpoints were inspected and no elevated flaps were noted. A Hemashield patch was cut to fit the defect and sutured in place with running 6 -0 Prolene. Prior to completing the closure, each vessel was flushed and then reoccluded. Heparinized saline was infused into the lumen. The patch was completed and flow was restored in the external carotid artery, followed the common carotid artery, lastly the internal carotid artery was opened. A low resistance arterialized signal was present within the internal carotid artery beyond the patch. Thrombin and Gelfoam were used to aid in hemostasis. Meticulous hemostasis was obtained throughout the wound with electrocautery. Platelet rich and platelet poor plasma were infused into the wounds. The sternocleidomastoid was reapproximated with interrupted 3-0 Vicryl. Platelet rich and platelet poor plasma were infused into the wound. A TLS drain was brought through a separate stab incision and sutured in place with 0 silk suture. The platysma was reapproximated with running 3-0 Vicryl. Local anesthetic was infused in the skin. A 3-0 Monocryl was used to reapproximate the skin. Sterile dressing was applied. The patient was extubated, taken to the recovery room in stable condition.
[2016-09-10] MEDS ORDERED: *HR* HYDROmorphone (PF) 1 MG/ML SYRINGE IVP PRN (12:48)
[2016-09-10] MEDS ORDERED: *HR* Promethazine 25 MG/ML VIAL IVP PRN (12:48)
[2016-09-10] MEDS ORDERED: *HR* Labetalol 100 MG/20 ML MDV IVP PRN (12:48)
[2016-09-10 13:07] LABS: Hematocrit 27.4 % (35.3-44.9); Hemoglobin 7.9 g/dL (11.5-15.4)
--- NOTE | 2016-09-10 13:58 | Anesthesia Evaluation Post Op ---
Date of Encounter: 09/10/16 Time of Encounter: 13:30 - Vital Signs Vital Signs: Vital Signs/O2 Sat/Glucose, Most Current Temp Pulse Resp BP Pulse Ox 09/10/16 13:21 98.5 F 74 14 129/68 97 09/10/16 13:11 98.5 F 74 15 134/67 96 09/10/16 13:01 72 13 143/75 100 09/10/16 12:51 77 15 152/77 100 09/10/16 12:41 97.2 F L 76 20 150/74 100 - Lungs Lungs: Clear Ascult./Percussion - Airway Airway: Non-obstructed - Cardiovascular Regular Rate - Mental Status Mental Status: Alert & Oriented, Answers Appropriately - Pain Pain Scale: 0 - Nausea Vomiting Nausea Vomiting: Not Present - Hydration Hydration: Ice chips - Discharge PostOp Status: Transfer Patient to floor
[2016-09-10] MEDS ORDERED: *HR* Morphine 2 MG/ML SYRINGE IVP PRN (14:09)
[2016-09-10] MEDS ORDERED: Ondansetron 4 MG/2 ML VIAL IVP PRN (14:09)
[2016-09-10] MEDS ORDERED: Naloxone 0.4 MG/ML INJ IVP PRN (14:09)
[2016-09-10] MEDS ORDERED: *HR* OxyCODONE Immed Rel 5 MG TABLET PO PRN (14:09)
[2016-09-10] MEDS ORDERED: *HR* Labetalol 20 MG/4 ML SYRINGE IVP PRN (14:09)
[2016-09-10] MEDS ORDERED: Acetaminophen 325 MG TABLET PO PRN (14:09)
[2016-09-10 14:51] LABS: Basophils % 0.2 %; Eosinophils % 0.2 %; Hematocrit 27.4 % (35.3-44.9); Hemoglobin 8.1 g/dL (11.5-15.4); Immature Granulocytes % 0.9 % (0-4); Lymphocytes # 0.6 K/mcL (0.6-4.6); Lymphocytes % 6.2 %; Mean Corpuscular HGB Conc 29.6 g/dL (31.6-35.5); Mean Corpuscular Hemoglobin 21.1 pg (28.0-33.3); Mean Corpuscular Volume 71.5 fL (83.0-100.0); Monocytes # 0.2 K/mcL (0.0-1.3); Monocytes % 2.4 %; Neutrophils # 9.1 K/mcL (1.6-8.9); Platelet Count 218 K/mcL (140-400); Red Blood Count 3.83 M/mcL (3.82-4.97); Red Cell Distribution Width 24.7 % (11.5-14.5); Segmented Neutrophils % 90.1 %
[2016-09-10] MEDS: *HR* Metoprolol 5 MG/5 ML VIAL IVP SCH ×3 (14:52→23:31)
--- NOTE | 2016-09-10 14:59 | Internal Med Progress Note ---
Date of Encounter: 09/10/16 Time of Encounter: 14:57 - Assessment and plan (1) Anemia Current Visit: Yes Status: Acute Assessment and plan: admitted with a hemoglobin of 5.6. She was transfused with 2 units of packed red blood cells , hemoglobin today is 8.1. Iron studies were completed prior to transfusion. Iron level is 11, percent saturation is 2, started on iron. GI was consulted. underwent EGD and colonoscopy . EGD shows a single recently bleeding angiectasia in the stomach that was treated with APC. colonoscopy shows multiple colonic angiectasias that was treated with APC. will monitor cbc, await path results and capsule endo as per GI as OP. \ Qualifiers: Anemia type: iron deficiency Qualified Code(s): D50.0 - Iron deficiency anemia secondary to blood loss (chronic) (2) Carotid stenosis, left Current Visit: Yes Status: Chronic Assessment and plan: Patient is scheduled to have a carotid endarterectomy today with DR. Cox. vascular is following (3) Hypertension Current Visit: Yes Status: Chronic Assessment and plan: Chronic. Continue medications. Qualifiers: Hypertension type: essential hypertension Qualified Code(s): I10 - Essential (primary) hypertension (4) Tobacco abuse Current Visit: Yes Status: Acute - Time Spent With Patient 25 - 35 minutes - Subjective Interval history: patinet seen at the [facility], denies any complains s/p EGD/colonoscopy yesterday with DR. Alonso admitted for anemia, planned for carotid endarterectomy today. - Constitutional Vitals: Temp Pulse Resp BP Pulse Ox 98.1 F 75 16 118/73 97 09/10/16 13:40 09/10/16 14:31 09/10/16 14:31 09/10/16 14:31 09/10/16 14:31 General appearance: Present: cooperative, A&O X 3, pleasant, no acute distress, answers questions appropriately Exam: neck- supple chest- b/l clear, no added sounds CVs-s1 and s2, no m r//g abd- soft, non tender , bs are present ext- no edema neuro- no focal deficits, alert and awake Internal Medicine: Result - Labs CBC & Chem 7: 09/10/16 14:42 09/08/16 04:14 Labs: Short CBC 09/10/16 09/10/16 Range/Units 12:53 14:42 WBC 10.1 D (4.3-11.1) K/mcL Hgb 7.9 L 8.1 L (11.5-15.4) g/dL Hct 27.4 L 27.4 L (35.3-44.9) % Plt Count 218 (140-400) K/mcL Neutrophils # 9.1 H (1.6-8.9) K/mcL - VTE Documentation of Mechanical Device: Intermittent pneumatic compression device Consult Discharge Plan - Plan Referrals: Miguel Angel Rojas MD [Primary Care Provider] - 09/17/16 10:00 am (Please follow up as schedule...)
[2016-09-10] MEDS: ceFAZolin 2,000 MG in D5% in Water 100 ML IVPB SCH ×2 (15:02→22:59)
[2016-09-10] MEDS: *HR* HYDROcodone/Acet 5/325 mg TABLET PO PRN ×2 (17:04→23:31)
[2016-09-11 04:39] LABS: Basophils % 0.2 %
[2016-09-11 04:41] LABS: Eosinophils % 0.3 %; Hematocrit 26.4 % (35.3-44.9); Hemoglobin 7.6 g/dL (11.5-15.4); Immature Granulocytes % 0.6 % (0-4); Lymphocytes # 1.4 K/mcL (0.6-4.6); Lymphocytes % 13.8 %; Mean Corpuscular HGB Conc 28.8 g/dL (31.6-35.5); Mean Corpuscular Hemoglobin 20.8 pg (28.0-33.3); Mean Corpuscular Volume 72.1 fL (83.0-100.0); Mean Platelet Volume 9.5 fL (9.4-12.4); Monocytes # 0.8 K/mcL (0.0-1.3); Monocytes % 7.6 %; Platelet Count 209 K/mcL (140-400); Red Blood Count 3.66 M/mcL (3.82-4.97); Red Cell Distribution Width 25.1 % (11.5-14.5); Segmented Neutrophils % 77.5 %
[2016-09-11 04:47] LABS: Neutrophils # 7.8 K/mcL (1.6-8.9)
[2016-09-11 04:53] LABS: BUN/Creatinine Ratio 10 (6-26); Blood Urea Nitrogen 6 mg/dL (7-20); Calcium 8.7 mg/dL (8.6-10.8); Carbon Dioxide 27 mEq/L (19-29); Chloride 105 mEq/L (98-109); Glucose 100 mg/dL (70-99); Osmolality,Calculated 284 (280-300); Potassium 3.5 mEq/L (3.5-4.5); Sodium 138 mEq/L (136-145); eGFR For African Americans > 60 (> 60); eGFR For Non-African Americans > 60 (> 60)
[2016-09-11] MEDS: *HR* Metoprolol 5 MG/5 ML VIAL IVP SCH (05:00)
[2016-09-11 05:21] LABS: Anisocytosis 2+ (Not Present); Hypochromasia Present (Not Present); Microcytosis Present (Not Present)
[2016-09-11 05:23] LABS: Large Platelets Present (Not Present); Platelet Estimate Normal (Normal); Polychromasia 1+ (Not Present)
--- NOTE | 2016-09-11 08:02 | Discharge Summary ---
Date of Encounter: 09/11/16 - Discharge Diagnosis (1) Carotid stenosis, bilateral Status: Chronic (2) Tobacco abuse Status: Acute (3) Hypertension Status: Chronic Qualifiers: Hypertension type: essential hypertension Qualified Code(s): I10 - Essential (primary) hypertension (4) Microcytic anemia Status: Acute - Discharge Medications Prescriptions: HYDROcodone/Acet 5/325 mg [[place] 5-325 mg] 1 tab PO Q4H PRN #30 tablet PRN Reason: POSTOPERATIVE PAIN Home Medications: Aspirin Enteric Coated [Aspirin EC] 81 mg PO DAILY 09/06/16 [History] Carvedilol 12.5 mg PO BID 09/06/16 [History] hydroCHLOROthiazide [Hydrochlorothiazide] 25 mg PO DAILY 09/06/16 [History] HYDROcodone/Acet 5/325 mg [[place] 5-325 mg] 1 tab PO Q4H PRN #30 tablet 09/11/16 [Rx] Allergies/Adverse Reactions: Allergies Penicillins [PCN] Allergy (Verified 09/05/16 09:16) Rash lisinopril Adverse Reaction (Verified 09/05/16 09:16) Cough meperidine [From Demerol] Adverse Reaction (Verified 09/05/16 09:16) Vomiting Date of admission: 09/07/16 12:44 Primary care physician: Miguel Angel Rojas MD - Patient Status Condition: Good - Discharge Instructions Follow Up With: Miguel Angel Rojas MD [Primary Care Provider] - 09/17/16 10:00 am (Please follow up as schedule...) - Hospital Course Hospital course: Ms. Oleary is a 56 year old female - Time Spent with Patient Total time spent providing and/or coordinating discharge services: Exam Vital Signs, Last 4 Hours Temp Pulse Resp BP Pulse Ox 09/11/16 07:03 98.4 F 81 16 135/75 99 09/11/16 06:26 98.6 F 82 16 100 09/11/16 04:58 98.6 F 80 17 147/70 100 09/11/16 04:50 70 16 99 - VTE Documentation of Mechanical Device: Intermittent pneumatic compression device
[2016-09-11] MEDS ORDERED: hydroCHLOROthiazide 25 MG TABLET PO SCH (09:00)
[2016-09-11] MEDS ORDERED: Aspirin Enteric Coated 81 MG Tablet PO SCH (09:00)
[2016-09-11] MEDS ORDERED: Nicotine 21 MG PATCH.TD24 TD SCH (09:00)
--- NOTE | 2016-09-11 09:23 | Vascular/Endovas Progress Note ---
Date of Encounter: 09/11/16 Time of Encounter: 08:00 - Assessment and plan (1) Carotid stenosis, bilateral Status: Chronic The patient is postoperative day #1 after a left carotid endartectomy. She is alert without neurologic deficits. Her incision is healing well without hematoma. Her drain was removed. (2) Tobacco abuse Status: Acute She was counseled regarding smoking cessation. (3) Hypertension Status: Chronic She was counseled regarding atheorsclerotic risk factor reduction. Qualifiers: Hypertension type: essential hypertension Qualified Code(s): I10 - Essential (primary) hypertension (4) Microcytic anemia Status: Acute The patient has ongoing anemia. Her hemoglobin has declined since her procedure. She did not have significant blood loss since the procedure. She did receive crystalloid. Recommend rechecking her hemoglobin today and consider transfusion if she has further decline. She remains hemodynamically stable. - Subjective Interval history: The patient is postoperative day #1 after left carotid endarterectomy. She denies any acute issues over night. She is alert and comfortable. She reports that her pain is well controlled. She denies chest pain or shortness of breath. Vital Signs, Last 4 Hours Temp Pulse Resp BP Pulse Ox 09/11/16 07:03 98.4 F 81 16 135/75 99 09/11/16 06:26 98.6 F 82 16 100 - Physical Examination General: Present: Conversant, No Apparent Distress HEENT: Present: Trachea midline, Pupils equal Neck: Absent: JVD, Tracheal deviation Cardiac: Present: Reg Rate and Rhythm Lungs: Present: Normal Breath Sounds Neuro: Present: Alert and responsive, No focal deficits noted Vascular: Present: Normal capillary refill, Surgical incisions (incision clean, dry and intact withotu erythema, hematoma or drainage) Abdomen: Present: Soft Skin: Present: No rashes noted on visualized skin - VTE Documentation of Mechanical Device: Intermittent pneumatic compression device Results 09/11/16 10:16 09/11/16 04:15 Lab Results, Last 24 hours 09/10/16 09/10/16 09/11/16 12:53 14:42 04:15 WBC 10.1 D 10.0 Hgb 7.9 L 8.1 L 7.6 L Hct 27.4 L 27.4 L 26.4 L Plt Count 218 209 Sodium Potassium Chloride Carbon Dioxide BUN Creatinine Glucose Calcium 09/11/16 04:15 WBC Hgb Hct Plt Count Sodium 138 Potassium 3.5 Chloride 105 Carbon Dioxide 27 BUN 6 L Creatinine 0.61 Glucose 100 H Calcium 8.7 Consult Discharge Plan - Plan Instructions: Peripheral Vascular Disorders (DC), Surgical Site Infections (GEN ), Anemia (GEN) Referrals: Luis Armando Cox MD [Partnered Physician] - 10/14/16 3:30 pm Miguel Angel Rojas MD [Primary Care Provider] - 09/17/16 10:00 am (Please follow up as schedule...) Prescriptions: HYDROcodone/Acet 5/325 mg [[place] 5-325 mg] 1 tab PO Q4H PRN #30 tablet PRN Reason: POSTOPERATIVE PAIN Omeprazole [PriLOSEC] 20 mg PO DAILY@0630 30 Days
[2016-09-11 10:22] LABS: Hematocrit 27.2 % (35.3-44.9); Hemoglobin 7.9 g/dL (11.5-15.4)
[2016-09-11] MEDS: *HR* HYDROcodone/Acet 5/325 mg TABLET PO PRN (11:19)
[2016-09-11 11:49] VITALS: BP 134/77
--- NOTE | 2016-09-11 12:04 | Discharge Summary ---
Date of Encounter: 09/11/16 Time of Encounter: 12:02 - Discharge Diagnosis (1) Anemia Priority: Primary Status: Acute Qualifiers: Anemia type: iron deficiency Qualified Code(s): D50.0 - Iron deficiency anemia secondary to blood loss (chronic) (2) Carotid stenosis, left Priority: Primary Status: Chronic (3) Hypertension Priority: Secondary Status: Chronic Qualifiers: Hypertension type: essential hypertension Qualified Code(s): I10 - Essential (primary) hypertension (4) Tobacco abuse Priority: Secondary Status: Acute - Discharge Medications Prescriptions: HYDROcodone/Acet 5/325 mg [[place] 5-325 mg] 1 tab PO Q4H PRN #30 tablet PRN Reason: POSTOPERATIVE PAIN Omeprazole [PriLOSEC] 20 mg PO DAILY@0630 30 Days Home Medications: Aspirin Enteric Coated [Aspirin EC] 81 mg PO DAILY 09/06/16 [History] Carvedilol 12.5 mg PO BID 09/06/16 [History] hydroCHLOROthiazide [Hydrochlorothiazide] 25 mg PO DAILY 09/06/16 [History] HYDROcodone/Acet 5/325 mg [[place] 5-325 mg] 1 tab PO Q4H PRN #30 tablet 09/11/16 [Rx] Omeprazole [PriLOSEC] 20 mg PO DAILY@0630 30 Days 09/11/16 [Rx] Allergies/Adverse Reactions: Allergies Penicillins [PCN] Allergy (Verified 09/05/16 09:16) Rash lisinopril Adverse Reaction (Verified 09/05/16 09:16) Cough meperidine [From Demerol] Adverse Reaction (Verified 09/05/16 09:16) Vomiting Date of admission: 09/07/16 12:44 Primary care physician: Miguel Angel Rojas MD Discharging clinician: Jaimie Calabrese Anticipated date of discharge: 09/11/16 - Patient Status Disposition: Home, Self-Care Condition: Fair Functional capacity at discharge: independent ambulation Overall status at discharge: patient is back to baseline - Discharge Instructions Instructions: Peripheral Vascular Disorders (DC), Surgical Site Infections (GEN ), Anemia (GEN) Follow Up With: Luis Armando Cox MD [Partnered Physician] - 10/14/16 3:30 pm Miguel Angel Rojas MD [Primary Care Provider] - 09/17/16 10:00 am (Please follow up as schedule...) - Diet and Activity Activity: resume usual activities as tolerated Diet: advance to your usual diet Interval History: Ms. Oleary is a 56 year old female see because of her anemia. Patient is supposed to have a carotid endarterectomy done with dr. Cox. on routine preoperative testing she was found to be anemic so got admitted. Per patient she has been feeling some fatigue lately but no other symptoms. No bleeding per rectum no black stool. Had a colonoscopy done more than 5 years ago and per patient 2 polyps were removed. No family history of colon cancer. GI was consulted and underwent EGD and colonoscopy .She was transfused with 2 units of packed red blood cells. EGD shows a single recently bleeding angiectasia in the stomach that was treated with APC. colonoscopy shows multiple colonic angiectasias that was treated with APC. h/h remanied stable after the procedure, she underwentleft carotid endartectomy without any post op complications she is being dc today in stable condition and will f/u with PCP as OP. Hospital course: Ms. Oleary is a 56 year old female Time spent discussing smoking cessation with patient: more than 10 minutes - Time Spent with Patient Total time spent providing and/or coordinating discharge services: Greater than 30 minutes - Constitutional Vitals: Temp Pulse Resp BP Pulse Ox 98.2 F 86 16 134/77 98 09/11/16 11:47 09/11/16 11:47 09/11/16 11:47 09/11/16 11:47 09/11/16 11:47 General appearance: Present: cooperative, A&O X 3, pleasant, no acute distress, answers questions appropriately Exam: neck- supple chest- b/l clear, no added sounds CVs-s1 and s2, no m r//g abd- soft, non tender , bs are present ext- no edema neuro- no focal deficits, alert and awake - VTE Documentation of Mechanical Device: Intermittent pneumatic compression device
== END 2016-09-11 14:16 | disposition home or self-care (01) | DRG 981 ==
LOC: EMEROO 17:31 → 2ANU 17:31 → 2NNU 09-10 12:59
PROVIDERS: ADMIT Internal Medicine; ATTEND Internal Medicine
PROC: ENDOEBX (2016-09-09 09:30)
PROC: ENDOCBX (2016-09-09 09:30)